=== PATIENT | female | born 1985 | race Hispanic/Latino ===

== ENCOUNTER 2022-10-23 09:09 | Outpatient (CLI) | payer BC | END 2022-10-23 09:10 | disposition home or self-care (01) | LOC: SCSMRI 09:09 | PROVIDERS: ATTEND Orthopaedic Surgery | DX: M23.91 Unspecified internal derangement of right knee (principal); M22.41 Chondromalacia patellae, right knee; S83.511A Sprain of anterior cruciate ligament of right knee, initial encounter ==

== ENCOUNTER 2023-04-05 12:51 | Outpatient (CLI) | payer BC | END 2023-04-05 12:52 | disposition home or self-care (01) | LOC: ULT 12:51 | PROVIDERS: ATTEND Student in an Organized Health Care Education/Training Program | DX: R22.30 Localized swelling, mass and lump, unspecified upper limb (principal) | CPT/HCPCS: 76999 ==

== ENCOUNTER 2025-07-30 19:58 | Inpatient (IN) | payer BC ==
[2025-07-30] MEDS ORDERED: Ondansetron PF 4 MG/2 ML Vial IVP PRN (23:33)
[2025-07-30] MEDS ORDERED: Bisacodyl 10 MG SUPP PR PRN (23:33)
[2025-07-30] MEDS ORDERED: Acetaminophen/Codeine 30-300mg Tablet PO PRN (23:33)
[2025-07-30] MEDS ORDERED: Calcium Carbonate 500 MG ChewTAB PO PRN (23:33)
[2025-07-30] MEDS ORDERED: Guaifenesin DM 100-10/5 ML UDCUP PO PRN (23:33)
[2025-07-30] MEDS ORDERED: Senokot S 8.6-50 MG TAB PO PRN (23:33)
[2025-07-30] MEDS ORDERED: Melatonin 3 MG TAB PO PRN (23:33)
[2025-07-30 23:42] VITALS: BMI 26.1
[2025-07-30] MEDS ORDERED: PHOS-NAK 1 PKT PACK PO PRN (23:45)
[2025-07-30] MEDS ORDERED: Magnesium Sulfate In Water 4 GM in Premix 1 BAG IVPB PRN (23:45)
[2025-07-30] MEDS ORDERED: Electrolyte Replacement Protocol 1 EACH FS SCH (23:45)
[2025-07-31] MEDS: Acetaminophen 325 MG TAB PO PRN (00:02)
[2025-07-31 05:42] LABS: Anion Gap 6 mmol/L (10-20); BUN (Urea Nitrogen) 5 mg/dL (7.0-18.7); Calc. Creatinine Clearance 166 mL/min (70-130); Calcium 7.6 mg/dL (7.8-10.44); Carbon Dioxide 25 mmol/L (22-29); Chloride 110 mmol/L (98-107); Glucose 98 mg/dL (70-105); Magnesium 1.8 mg/dL (1.6-2.6); Potassium 3.1 mmol/L (3.5-5.1); Sodium 138 mmol/L (136-145)
[2025-07-31] MEDS: Potassium Chloride 20 MEQ in Premix 1 BAG IVPB PRN (06:16)
[2025-07-31 09:29] LABS: #Basophils 0.07 10x3/uL (0.0-0.2); #Eosinophils 0.13 10x3/uL (0.0-0.7); #Monocytes 1.15 10x3/uL (0.11-0.59); #Neutrophils 9.30 10x3/uL (1.40-6.50); %Basophils 0.6 % (0.0-1.0); %Eosinophils 1.0 % (0.0-10.0); %Lymphocytes 14.5 % (21.0-51.0); %Monocytes 9.2 % (0.0-10.0); %Neutrophils 74.4 % (42.0-75.0); Hematocrit 32.3 % (36.0-47.0); Hemoglobin 10.5 g/dL (12.0-16.0); Mean Corpuscular Hemoglobin 30.3 pg (27.0-31.0); Mean Corpuscular Volume 93.1 fL (78.0-98.0); Platelet Count 159 10x3/uL (130-400); Red Blood Cell (RBC) Count 3.47 mill/uL (4.20-5.40); White Blood Cell (WBC) Count 12.50 10x3/uL (4.8-10.8)
[2025-07-31] MEDS: VANCOMYCIN 2 GRAM/400 ML Premix BAG IVPB SCH (10:44)
[2025-07-31 11:59] LABS: INR-International Normal Ratio 1.3; Prothrombin Time 16.8 sec (12.0-14.7)
[2025-07-31 12:00] LABS: PTT 44.9 sec (22.9-36.1)
[2025-07-31] MEDS ORDERED: Lidocaine 1% w/Epinephrine 1:100K 20 ML VIAL ONE (12:15)
[2025-07-31] MEDS ORDERED: Sodium Bicarbonate 2.5 MEQ/5 ML SDV ONE (12:15)
[2025-07-31] MEDS ORDERED: Vancomycin 1 GM in Premix 1 BAG IVPB SCH (14:00)
[2025-07-31] MEDS ORDERED: Acetaminophen 500 MG TAB ONE (14:11)
[2025-07-31] MEDS: Vancomycin 1 GM in Premix 1 BAG IVPB SCH (15:09)
[2025-07-31] MEDS: HYDROcodone/Acetaminophen 5/325 mg Tablet PO PRN (20:09)
[2025-08-01 06:38] LABS: #Basophils 0.10 10x3/uL (0.0-0.2); #Eosinophils 0.10 10x3/uL (0.0-0.7); #Monocytes 0.97 10x3/uL (0.11-0.59); #Neutrophils 9.51 10x3/uL (1.40-6.50); %Basophils 0.8 % (0.0-1.0); %Eosinophils 0.8 % (0.0-10.0); %Lymphocytes 16.8 % (21.0-51.0); %Monocytes 7.5 % (0.0-10.0); %Neutrophils 73.5 % (42.0-75.0); Hematocrit 30.8 % (36.0-47.0); Hemoglobin 9.9 g/dL (12.0-16.0); Mean Corpuscular Hemoglobin 30.2 pg (27.0-31.0); Mean Corpuscular Volume 93.9 fL (78.0-98.0); Platelet Count 210 10x3/uL (130-400); Red Blood Cell (RBC) Count 3.28 mill/uL (4.20-5.40); White Blood Cell (WBC) Count 12.94 10x3/uL (4.8-10.8)
[2025-08-01 06:45] LABS: Vancomycin, Random 15.6 ug/mL (See Comment)
[2025-08-01 06:47] LABS: Anion Gap 12 mmol/L (10-20); BUN (Urea Nitrogen) 4 mg/dL (7.0-18.7); Calc. Creatinine Clearance 169 mL/min (70-130); Calcium 7.4 mg/dL (7.8-10.44); Carbon Dioxide 22 mmol/L (22-29); Chloride 107 mmol/L (98-107); Glucose 87 mg/dL (70-105); Potassium 3.4 mmol/L (3.5-5.1); Sodium 138 mmol/L (136-145)
[2025-08-01] MEDS: Ketorolac Tromethamine 30 MG (1 mL) VIAL IVP SCH (12:25)
[2025-08-01 12:26] LABS: Magnesium 1.6 mg/dL (1.6-2.6)
[2025-08-01] MEDS: Magnesium Oxide 400 MG TAB PO SCH (12:27)
[2025-08-01] MEDS: HYDROcodone/Acetaminophen 5/325 mg Tablet PO PRN (16:12)
[2025-08-02 06:12] LABS: #Basophils 0.07 10x3/uL (0.0-0.2); #Eosinophils 0.19 10x3/uL (0.0-0.7); #Monocytes 0.76 10x3/uL (0.11-0.59); #Neutrophils 6.83 10x3/uL (1.40-6.50); %Basophils 0.7 % (0.0-1.0); %Eosinophils 1.9 % (0.0-10.0); %Lymphocytes 22.4 % (21.0-51.0); %Monocytes 7.4 % (0.0-10.0); %Neutrophils 66.8 % (42.0-75.0); Hematocrit 28.3 % (36.0-47.0); Hemoglobin 9.3 g/dL (12.0-16.0); Mean Corpuscular Hemoglobin 30.7 pg (27.0-31.0); Mean Corpuscular Volume 93.4 fL (78.0-98.0); Platelet Count 265 10x3/uL (130-400); Red Blood Cell (RBC) Count 3.03 mill/uL (4.20-5.40); White Blood Cell (WBC) Count 10.22 10x3/uL (4.8-10.8)
[2025-08-02 06:33] LABS: Anion Gap 10 mmol/L (10-20); BUN (Urea Nitrogen) 4 mg/dL (7.0-18.7); Calc. Creatinine Clearance 172 mL/min (70-130); Calcium 7.8 mg/dL (7.8-10.44); Carbon Dioxide 24 mmol/L (22-29); Chloride 107 mmol/L (98-107); Glucose 85 mg/dL (70-105); Potassium 3.4 mmol/L (3.5-5.1); Sodium 138 mmol/L (136-145)
[2025-08-02] MEDS: Magnesium Oxide 400 MG TAB PO SCH (08:47)
[2025-08-02] MEDS: cefTRIAXone\\ROCEPHIN 2 GM in Sodium Chloride 0.9% 100 ML IVPB SCH (10:18)
[2025-08-02 11:53] LABS: Iron 18 ug/dL (50-170); Iron Binding Capacity, Total 135 mcg/dL (265-497)
[2025-08-02 14:32] LABS: Magnesium 1.9 mg/dL (1.6-2.6)
[2025-08-02] MEDS: Ferrous Gluconate 324 MG TAB PO SCH (14:45)
[2025-08-03 06:29] LABS: #Basophils 0.07 10x3/uL (0.0-0.2); #Eosinophils 0.26 10x3/uL (0.0-0.7); #Monocytes 0.73 10x3/uL (0.11-0.59); #Neutrophils 4.87 10x3/uL (1.40-6.50); %Basophils 0.8 % (0.0-1.0); %Eosinophils 3.0 % (0.0-10.0); %Lymphocytes 31.5 % (21.0-51.0); %Monocytes 8.3 % (0.0-10.0); %Neutrophils 55.5 % (42.0-75.0); Hematocrit 28.7 % (36.0-47.0); Hemoglobin 9.1 g/dL (12.0-16.0); Mean Corpuscular Hemoglobin 30.1 pg (27.0-31.0); Mean Corpuscular Volume 95.0 fL (78.0-98.0); Platelet Count 316 10x3/uL (130-400); Red Blood Cell (RBC) Count 3.02 mill/uL (4.20-5.40); White Blood Cell (WBC) Count 8.77 10x3/uL (4.8-10.8)
[2025-08-03 06:38] LABS: Anion Gap 3 mmol/L (10-20); BUN (Urea Nitrogen) Less than 4 mg/dL (7.0-18.7); Calc. Creatinine Clearance 186 mL/min (70-130); Calcium 8.2 mg/dL (7.8-10.44); Carbon Dioxide 24 mmol/L (22-29); Chloride 116 mmol/L (98-107); Glucose 81 mg/dL (70-105); Potassium 3.7 mmol/L (3.5-5.1); Sodium 139 mmol/L (136-145)
[2025-08-03] MEDS ORDERED: Iopamidol-370 76% 500 ML MDV (1 ML CHARGE) ONE (13:28)
[2025-08-04 05:45] LABS: Anion Gap 9 mmol/L (10-20); BUN (Urea Nitrogen) Less than 4 mg/dL (7.0-18.7); Calc. Creatinine Clearance 179 mL/min (70-130); Calcium 8.2 mg/dL (7.8-10.44); Carbon Dioxide 29 mmol/L (22-29); Chloride 106 mmol/L (98-107); Glucose 81 mg/dL (70-105); Potassium 3.9 mmol/L (3.5-5.1); Sodium 140 mmol/L (136-145)
[2025-08-04 09:50] LABS: Hematocrit 35.3 % (36.0-47.0); Hemoglobin 11.1 g/dL (12.0-16.0)
[2025-08-04 10:09] LABS: ALT (SGPT) 17 U/L (Less than 34); AST (SGOT) 22 U/L (11-34); Albumin 2.8 g/dL (3.1-4.5); Alkaline Phosphatase 79 U/L (40-110); Bilirubin, Direct 0.2 mg/dL (0.1-0.3); Bilirubin, Total 0.3 mg/dL (0.3-1.2)
[2025-08-04] MEDS: Ferrous Gluconate 324 MG TAB PO SCH (11:08)
[2025-08-04] MEDS ORDERED: Sodium Bicarbonate 2.5 MEQ/5 ML SDV ONE (13:55)
[2025-08-04] MEDS ORDERED: Lidocaine 1% w/Epinephrine 1:100K 20 ML VIAL ONE (13:55)
[2025-08-04 16:49] VITALS: BP 113/81; TEMP 98.3
== END 2025-08-04 16:51 | disposition home or self-care (01) | DRG 871 ==
LOC: T4-B 22:59
PROVIDERS: ADMIT Family Medicine; ATTEND Internal Medicine
PROC: 05HY33Z Insertion of Infusion Device into Upper Vein, Percutaneous Approach (ICD-10-PCS; principal; 2025-08-03)
PROC: 3E03329 Introduction of Other Anti-infective into Peripheral Vein, Percutaneous Approach (ICD-10-PCS; 2025-08-04)
PROC: 0T9B70Z Drainage of Bladder with Drainage Device, Via Natural or Artificial Opening (ICD-10-PCS; 2025-08-04)
DX: A41.51 Sepsis due to Escherichia coli [E. coli] (principal); N15.1 Renal and perinephric abscess; N12 Tubulo-interstitial nephritis, not specified as acute or chronic; N39.0 Urinary tract infection, site not specified; R10.A1 Flank pain, right side; E03.9 Hypothyroidism, unspecified; E87.6 Hypokalemia; I95.9 Hypotension, unspecified; B96.20 Unspecified Escherichia coli [E. coli] as the cause of diseases classified elsewhere; D50.9 Iron deficiency anemia, unspecified
CPT/HCPCS: 36415; 49406; 49423; 74160; 74177; 76705; 77002; 80048; 80053; 80076; 80202; 81001; 81025; 82728; 83540; 83550; 83605; 83690; 83735; 84100; 84145; 85014; 85018; 85025; 85610; 85730; 86140; 87040; 87070; 87077; 87086; 87102; 87116; 87186; 87205; 87206; 87428; 96374; 96375; 96376; C1729; C1769; C1894; J0692; J0696; J1885; J2270; J2543; J3010; J3373; J3375; J3480; J7030; J7042; Q9967